=== PATIENT | female | born 1965 | race Caucasian/White ===

== ENCOUNTER 2017-01-07 14:10 | Emergency (ER) | payer BC ==
[2017-01-07 14:42] VITALS: BP 121/84
--- NOTE | 2017-01-07 16:06 | EDM.PDOC ---
ED HPI GENERAL MEDICAL PROBLEM - General Chief Complaint: Upper Extremity Injury/Pain Stated Complaint: LEFT WRIST PAIN Time Seen by Provider: 01/07/17 16:00 Source of Information: Reports: Patient History Limitations: Reports: No Limitations - History of Present Illness INITIAL COMMENTS - FREE TEXT/NARRATIVE: 51-year-old female presents for evaluation and treatment of several different complaints. What brought patient to the ER is left wrist swelling and pain. Reports that this has been going on for the last 2 days. She states that she came to [facility] late on night. She states the next day she noticed swelling and pain to the left lateral wrist. No numbness or tingling into the hand. No overlying erythema. She denies any trauma or repetitive movements. Patient is left-handed. Patient also reports that she was recently diagnosed with "a lung infection." She states this with either pneumonia or bronchitis. She has been on antibiotics and prednisone. She has completed the antibiotic but continues to be on prednisone 10 mg daily. She reports associated symptoms of coughing and fatigue. States she is coughing up a green colored sputum. She denies any earaches, fevers, nausea, vomiting or sore throat. Patient is a diabetic. She is also on multiple medications for chronic pain. Left Wrist Pain Score (Numeric/FACES): 7 - Related Data Allergies Allergy/AdvReac Type Severity Reaction Status Date / Time Cephalosporins Allergy Cannot Verified 01/07/17 14:42 Remember Home Meds: Home Meds Albuterol [Proventil Neb Soln] 1.25 mg INH DAILY 01/07/17 [History] Anastrozole [Arimidex] 1 mg PO DAILY 01/07/17 [History] Benzonatate 100 mg PO TID 01/07/17 [History] Calcium Carbonate [Tums] 500 mg PO ASDIRECTED PRN 01/07/17 [History] DULoxetine [Cymbalta] 30 mg PO DAILY 01/07/17 [History] Esomeprazole [NexIUM] 40 mg PO DAILY 01/07/17 [History] Gabapentin [Neurontin] 800 mg PO TID 01/07/17 [History] Glimepiride [Amaryl] 4 mg PO BID 01/07/17 [History] Hydrochlorothiazide 25 mg PO DAILY 01/07/17 [History] Insulin Glarg,Human.Rec.Analog [Lantus] 40 - 80 units INJECT DAILY 01/07/17 [ History] Insulin Lispro [Humalog Kwikpen U-100] 4 - 10 units INJECT ASDIRECTED 01/07/17 [ History] Ipratropium-Albuteral 01/07/17 [History] Levothyroxine Sodium [Synthroid] 137 mcg PO DAILY 01/07/17 [History] Mometasone/Formoterol [Dulera 200-5 MCG] 2 puff INH BID 01/07/17 [History] Montelukast [Singulair] 10 mg PO DAILY 01/07/17 [History] Morphine [MS Contin] 20 mg PO BID 01/07/17 [History] Potassium Chloride 20 meq PO DAILY 01/07/17 [History] Prednisone [IMW: predniSONE] 20 mg PO ASDIRECTED 01/07/17 [History] Tiotropium [place] [Spiriva Respimat] 0.5 - 2.5 mg NEB TID PRN 01/07/17 [History ] Topiramate 50 mg PO DAILY 01/07/17 [History] Zolpidem Tartrate [Ambien] 5 mg PO BEDTIME 01/07/17 [History] atorvaSTATin [Lipitor] 20 mg PO BEDTIME 01/07/17 [History] oxyCODONE 10 mg PO Q6H PRN 01/07/17 [History] tiZANidine [Zanaflex] 2 mg PO 1200 01/07/17 [History] tiZANidine [Zanaflex] 4 mg PO BEDTIME 01/07/17 [History] Past Medical History HEENT History: Reports: Impaired Vision Respiratory History: Reports: Asthma, Bronchitis, Recurrent, Pneumonia, Recurrent, Sleep Apnea Other Genitourinary History: "cannot take NSAIDS, not sure what it's called" Musculoskeletal History: Reports: Back Pain, Chronic Endocrine/Metabolic History: Reports: Diabetes, Type II, Hypothyroidism Oncologic (Cancer) History: Reports: Breast Social & Family History - Family History Family Medical History: Noncontributory - Tobacco Use Smoking Status *Q: Never Smoker Second Hand Smoke Exposure: No - Recreational Drug Use Recreational Drug Use: No Review of Systems - Review of Systems Review Of Systems: See Below Constitutional: Reports: Other (reports malaise; reports fatigue). Denies: Fever Ears: Denies: Pain Mouth/Throat: Denies: Pain Respiratory: Reports: Cough, Sputum (reports green sputum). Denies: Shortness of Breath Cardiovascular: Denies: Chest Pain GI/Abdominal: Denies: Nausea, Vomiting Musculoskeletal: Reports: Joint Pain (left wrist), Joint Swelling (left wrist) Skin: Denies: Erythema Neurological: Denies: Numbness, Tingling ED EXAM, GENERAL - Physical Exam Exam: See Below Exam Limited By: No Limitations General Appearance: Alert, WD/WN, No Apparent Distress Eye Exam: Bilateral Eye: Normal Inspection Ears: Normal External Exam, Normal Canal, Hearing Grossly Normal, Normal TMs Ear Exam: Bilateral Ear: TM normal Nose: Normal Inspection Throat/Mouth: Normal Inspection, Normal Lips, Normal Voice, No Airway Compromise Neck: Normal Inspection Respiratory/Chest: No Respiratory Distress, Lungs Clear, Normal Breath Sounds Cardiovascular: Normal Peripheral Pulses, Regular Rate, Rhythm, No Murmur Peripheral Pulses: 2+: Radial (L), Radial (R) Extremities: Normal Capillary Refill, Other (heavy shellac to the fingernails) Neurological: Alert, Oriented, Normal Cognition Psychiatric: Normal Affect, Normal Mood Skin Exam: Warm, Dry Course - Vital Signs Last Recorded V/S: Last Vital Signs Temp 37.4 C 01/07/17 14:35 Pulse 115 H 01/07/17 14:35 Resp 22 H 01/07/17 14:35 BP 121/84 01/07/17 14:35 Pulse Ox 90 L 01/07/17 14:35 - Orders/Labs/Meds Labs: Laboratory Tests 01/07/17 01/07/17 Range/Units 15:50 15:50 WBC 27.47 H (3.98-10.04) K/mm3 RBC 4.44 (3.98-5.22) M/mm3 Hgb 13.0 (11.2-15.7) gm/L Hct 40.7 (34.1-44.9) % MCV 91.7 (79.4-94.8) fl MCH 29.3 (25.6-32.2) pg MCHC 31.9 L (32.2-35.5) g/dl RDW Std Deviation 49.4 H (36.4-46.3) fL Plt Count 312 (182-369) K/mm3 MPV 8.9 L (9.4-12.3) fl Neutrophils % (Manual) 82 H (40-60) % Band Neutrophils % 10 (0-10) % Lymphocytes % (Manual) 6 L (20-40) % Atypical Lymphs % 0 % Monocytes % (Manual) 2 (2-10) % Eosinophils % (Manual) 0 L (0.7-5.8) % Basophils % (Manual) 0 L (0.1-1.2) Toxic Granulation Few Platelet Estimate Adequate Plt Morphology Comment Normal RBC Morph Comment Normal Sodium 139 (136-145) mEq/L Potassium 3.4 L (3.5-5.1) mEq/L Chloride 100 (98-107) mEq/L Carbon Dioxide 29 (21-32) mEq/L Anion Gap 13.4 (5-15) BUN 20 H (7-18) mg/dL Creatinine 1.2 H (0.55-1.02) mg/dL Est Cr Clr Drug Dosing 52.72 mL/min Estimated GFR (MDRD) 47 (>60) mL/min BUN/Creatinine Ratio 16.7 (14-18) Glucose 89 (74-106) mg/dL Calcium 9.8 (8.5-10.1) mg/dL Total Bilirubin 1.0 (0.2-1.0) mg/dL AST 17 (15-37) U/L ALT 33 (14-59) U/L Alkaline Phosphatase 108 (46-116) U/L C-Reactive Protein 7.0 H* (<1.0) mg/dL Total Protein 8.1 (6.4-8.2) g/dl Albumin 3.7 (3.4-5.0) g/dl Globulin 4.4 gm/dL Albumin/Globulin Ratio 0.8 L (1-2) - Radiology Interpretation Free Text/Narrative:: chest xray shows no acute intrathoracic process. left wrist xray shows no acute fractures or dislocations. - Re-Assessments/Exams Free Text/Narrative Re-Assessment/Exam: 01/07/17 17:21 I reviewed the labs and imaging the patient. I feel her elevated white blood cell count is likely due to her prolonged prednisone usage. 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 Her pulse oxy in the upper 80s to low 90s is likely no accurate given her heavy shellaced nails. The plan is to be in [place] for the next month. I'll provide her with the names of some providers to follow-up with if her symptoms do not improve. Discharge instructions as documented. Departure - Departure Time of Disposition: 17:21 Disposition: Home, Self-Care 01 Condition: Fair Clinical Impression: Wrist pain, left - Discharge Information Instructions: Wrist Pain Referrals: PCP,Not In Area [Primary Care Provider] - Nati Springer PA-C [Physician Air Traffic Coordinator] - Forms: ED Department Discharge Additional Instructions: Recommend using the wrist splint and icing the wrist for 5 times a day for 10- 15 minutes. May use [id number] Tylenol as needed. Follow-up with family medicine in 1-2 weeks if year symptoms do not improve. Recommend Nati Springer or Analilia Skelton. Call [phone] to schedule with on of them. Please return to the ER if her symptoms change or worsen.
--- NOTE | 2017-01-12 10:47 | CR ---
Chest: Two views of the chest were obtained. Comparison: No previous study. Heart size and mediastinum are within normal limits. Right sided infusion catheter is seen. Electrostimulating device is seen within the thoracic spine. Lungs are clear with no acute infiltrates. Minimal scoliosis is noted within the spine with mild degenerative change. Impression: 1. Incidental findings. Nothing acute is appreciated on two-view chest x-ray. Diagnostic code #2
--- NOTE | 2017-01-12 10:47 | CR ---
Left wrist: Four views of the left wrist were obtained. Comparison: No previous study. Joint spaces are maintained. No acute fracture, dislocation or other bony abnormality is seen. Impression: 1. No abnormality is identified on left wrist study. Diagnostic code #1
== END 2017-01-07 17:44 | disposition home or self-care (01) ==
LOC: JD.ED 14:10
DX: M25.532 Pain in left wrist (principal); J45.909 Unspecified asthma, uncomplicated; E11.9 Type 2 diabetes mellitus without complications; E03.9 Hypothyroidism, unspecified; Z88.8 Allergy status to other drugs, medicaments and biological substances; Z79.4 Long term (current) use of insulin; Z79.899 Other long term (current) drug therapy; Z87.01 Personal history of pneumonia (recurrent); G47.30 Sleep apnea, unspecified; Z85.3 Personal history of malignant neoplasm of breast; Z88.1 Allergy status to other antibiotic agents
CPT/HCPCS: 36415; 71020; 71020-26; 73110-26-LT; 73110-LT; 80053; 85025; 86140; 99283; 99284

== ENCOUNTER 2019-05-18 14:07 | Emergency (ER) | payer BC ==
[2019-05-18] MEDS ORDERED: HYDROmorphone 0.5 MG/0.5 ML Syringe IVPUSH ONE ×2 (14:22→15:23)
[2019-05-18] MEDS ORDERED: Sodium Chloride 0.9% 10 ML Syringe FLUSH PRN (14:22)
--- NOTE | 2019-05-18 14:27 | EDM.PDOC ---
ED HPI GENERAL MEDICAL PROBLEM - General Chief Complaint: Upper Extremity Injury/Pain Stated Complaint: [facility] Time Seen by Provider: 05/18/19 14:13 Source of Information: Reports: Patient, EMS, RN Notes Reviewed - History of Present Illness INITIAL COMMENTS - FREE TEXT/NARRATIVE: 54-year-old lady was stepping over some type of a stair gait, lost her balance, came down hard on her left shoulder. She has severe left shoulder pain. EMS was called due to severity of the pain. She denies head neck or upper back injury. She denies chest pain or difficulty breathing. She has severe pain moving the left arm at the shoulder joint and also has moderate discomfort at the left elbow joint. She is diabetic, on insulin and multiple meds for that and also on multiple pain medications. Left Shoulder Pain Score (Numeric/FACES): 10 - Related Data Allergies Allergy/AdvReac Type Severity Reaction Status Date / Time Cephalosporins Allergy Cannot Verified 01/07/17 14:42 Remember NSAIDS (Non-Steroidal Allergy Cannot Verified 05/18/19 14:14 Anti-Inflamma Remember shellfish derived Allergy Cannot Verified 05/18/19 14:14 Remember Home Meds: Home Meds Albuterol [Proventil Neb Soln] 1.25 mg INH DAILY 01/07/17 [History] Anastrozole [Arimidex] 1 mg PO DAILY 01/07/17 [History] Benzonatate 100 mg PO TID 01/07/17 [History] Calcium Carbonate [Tums] 500 mg PO ASDIRECTED PRN 01/07/17 [History] DULoxetine [Cymbalta] 30 mg PO DAILY 01/07/17 [History] Esomeprazole [NexIUM] 40 mg PO DAILY 01/07/17 [History] Gabapentin [Neurontin] 800 mg PO TID 01/07/17 [History] Glimepiride [Amaryl] 4 mg PO BID 01/07/17 [History] Hydrochlorothiazide 25 mg PO DAILY 01/07/17 [History] Insulin Glarg,Human.Rec.Analog [Lantus] 40 - 80 units INJECT DAILY 01/07/17 [ History] Insulin Lispro [Humalog Kwikpen U-100] 4 - 10 units INJECT ASDIRECTED 01/07/17 [ History] Ipratropium-Albuteral 01/07/17 [History] Levothyroxine Sodium [Synthroid] 137 mcg PO DAILY 01/07/17 [History] Mometasone/Formoterol [Dulera 200-5 MCG] 2 puff INH BID 01/07/17 [History] Montelukast [Singulair] 10 mg PO DAILY 01/07/17 [History] Morphine [MS Contin] 20 mg PO BID 01/07/17 [History] Potassium Chloride 20 meq PO DAILY 01/07/17 [History] Prednisone [IMW: predniSONE] 20 mg PO ASDIRECTED 01/07/17 [History] Tiotropium [place] [Spiriva Respimat] 0.5 - 2.5 mg NEB TID PRN 01/07/17 [History ] Topiramate 50 mg PO DAILY 01/07/17 [History] Zolpidem Tartrate [Ambien] 5 mg PO BEDTIME 01/07/17 [History] atorvaSTATin [Lipitor] 20 mg PO BEDTIME 01/07/17 [History] oxyCODONE 10 mg PO Q6H PRN 01/07/17 [History] tiZANidine [Zanaflex] 2 mg PO 1200 01/07/17 [History] tiZANidine [Zanaflex] 4 mg PO BEDTIME 01/07/17 [History] Hydrocodone/Acetaminophen [[place] 5-325 Tablet] 1 each PO Q4HR PRN #30 tablet [Rx] Past Medical History HEENT History: Reports: Impaired Vision Respiratory History: Reports: Asthma, Bronchitis, Recurrent, Pneumonia, Recurrent, Sleep Apnea Other Genitourinary History: "cannot take NSAIDS, not sure what it's called" Musculoskeletal History: Reports: Back Pain, Chronic Endocrine/Metabolic History: Reports: Diabetes, Type II, Hypothyroidism Oncologic (Cancer) History: Reports: Breast Social & Family History - Family History Family Medical History: Noncontributory Review of Systems - Review of Systems Review Of Systems: See Below Constitutional: Reports: No Symptoms Eyes: Reports: No Symptoms Ears: Reports: No Symptoms Nose: Reports: No Symptoms Mouth/Throat: Reports: No Symptoms Respiratory: Denies: Shortness of Breath Cardiovascular: Denies: Chest Pain GI/Abdominal: Denies: Abdominal Pain, Vomiting Musculoskeletal: Reports: Shoulder Pain, Arm Pain. Denies: Back Pain, Leg Pain Skin: Reports: No Symptoms Neurological: Denies: Numbness, Tingling ED EXAM, GENERAL - Physical Exam Exam: See Below General Appearance: Alert, Mild Distress Eye Exam: Bilateral Eye: PERRL Throat/Mouth: Normal Inspection Head: Atraumatic Neck: Supple, Non-Tender Respiratory/Chest: No Respiratory Distress, Lungs Clear, Normal Breath Sounds Cardiovascular: Regular Rate, Rhythm Back Exam: Normal Inspection Extremities: Other (There is moderate diffuse tenderness of the left shoulder, no visible deformity, severe pain with any motion at the shoulder joint, left elbow also tender posteriorly and laterally and also has pain with motion of the left elbow. Once again no visible swelling or deformity.) Neurological: Alert, Oriented, No Motor/Sensory Deficits Skin Exam: Warm, Dry, Normal Color ED TRAUMA EXTREMITY PROCEDURES - Splinting Upper Extremity Splint Site: Upper arm and forearm Pre-Procedure NV Status: Normal Post-Procedure NV Status: Normal Splint Material: Fiberglass Splint Design: Posterior Applied & Form Fitted By: Provider Provider Post-Splint Application NV Check: NV Status Normal Course - Vital Signs Last Recorded V/S: Last Vital Signs Temp 97.5 F 05/18/19 14:11 Pulse 97 05/18/19 14:11 Resp 16 05/18/19 14:11 BP 116/66 05/18/19 14:11 Pulse Ox 94 L 05/18/19 14:11 - Orders/Labs/Meds Orders: Active Orders 24 hr Category Date Time Status Peripheral IV Care [RC] . DIRECTED Care 05/18/19 14:22 Active Elbow 2V Lt [CR] Stat Exams 05/18/19 14:33 Taken Shoulder Comp Lt [CR] Stat Exams 05/18/19 14:33 Taken Sodium Chloride 0.9% [Saline Flush] Med 05/18/19 14:22 Active 10 ml FLUSH ASDIRECTED PRN Peripheral IV Insertion Adult [OM.PC] Stat Oth 05/18/19 14:20 Ordered Medication Orders Sodium Chloride (Saline Flush) 10 ml FLUSH ASDIRECTED PRN PRN Reason: Keep Vein Open Last Admin: 05/18/19 14:25 Dose: 10 ml Meds: Medications Generic Name Dose Route Start Last Admin Trade Name Freq PRN Reason Stop Dose Admin Sodium Chloride 10 ml 05/18/19 14:22 05/18/19 14:25 Saline Flush FLUSH 10 ml ASDIRECTED PRN Administration Keep Vein Open Discontinued Medications Generic Name Dose Route Start Last Admin Trade Name Jarrod PRN Reason Stop Dose Admin Hydromorphone HCl 0.5 mg 05/18/19 14:22 05/18/19 14:32 Dilaudid IVPUSH 05/18/19 14:23 0.5 mg ONETIME ONE Administration Hydromorphone HCl 0.5 mg 05/18/19 15:23 05/18/19 15:28 Dilaudid IVPUSH 05/18/19 15:24 0.5 mg ONETIME ONE Administration - Re-Assessments/Exams Free Text/Narrative Re-Assessment/Exam: 05/18/19 16:12 X-ray of left shoulder does show fracture of the surgical neck of the humerus. Minimal displacement. Trace of the elbow are negative for fracture. Posterior splint has been applied. Sling-and swath ordered. Discharge instructions as documented Departure - Departure Time of Disposition: 16:13 Disposition: Home, Self-Care 01 Condition: Fair Clinical Impression: Fracture of humerus Qualifiers: Encounter type: initial encounter Humerus Location: surgical neck Fracture type : closed Fracture morphology: 2-part Laterality: left - Discharge Information Prescriptions: Hydrocodone/Acetaminophen [[place] 5-325 Tablet] 1 each PO Q4HR PRN #30 tablet PRN Reason: Pain Forms: ED Department Discharge Additional Instructions: Fiberglass splint left arm, sling and swathe for immobilization L arm. Intermittent ice packs to left shoulder this evening and tomorrow when it works to do that. Hydrocodone 1 tab every 4-6 hours as needed for severe pain. Prescription has been sent electronic to [facility] the [employer] [facility] [facility]. See Orthopedist in about 5-7 days, call next Monday for appointment. Have your regular local medical provider help with that referral if needed. Bring disc with copy of x-rays obtained today with you for that appointment. Sepsis Event Note - Evaluation Sepsis Screening Result: No Definite Risk - Focused Exam Vital Signs: Vital Signs Temp Pulse Resp BP Pulse Ox 05/18/19 14:11 97.5 F 97 16 116/66 94 L Date Exam was Performed: 05/18/19 Time Exam was Performed: 16:12 - My Orders Last 24 Hours: My Active Orders 05/18/19 14:20 Peripheral IV Insertion Adult [OM.PC] Stat 05/18/19 14:22 Peripheral IV Care [RC] . DIRECTED Sodium Chloride 0.9% [Saline Flush] 10 ml FLUSH ASDIRECTED PRN 05/18/19 14:33 Elbow 2V Lt [CR] Stat Shoulder Comp Lt [CR] Stat - Assessment/Plan Last 24 Hours: My Active Orders 05/18/19 14:20 Peripheral IV Insertion Adult [OM.PC] Stat 05/18/19 14:22 Peripheral IV Care [RC] . DIRECTED Sodium Chloride 0.9% [Saline Flush] 10 ml FLUSH ASDIRECTED PRN 05/18/19 14:33 Elbow 2V Lt [CR] Stat Shoulder Comp Lt [CR] Stat
[2019-05-18 16:51] VITALS: BP 110/66; PULSE 100
--- NOTE | 2019-05-20 07:12 | CR ---
Left elbow: Two views of the left elbow were obtained. Study is suboptimal in positioning. No gross fracture or other abnormality is appreciated. Impression: 1. Limited study due to positioning. 2. Within above limitation, no gross abnormality is appreciated. Diagnostic code #2 This report was dictated in [place] Standard Time
--- NOTE | 2019-05-20 07:12 | CR ---
Left shoulder: Three views of the left shoulder were obtained. Comparison: No previous shoulder study. Surgical neck fracture is identified. Alignment remains close to anatomic. No additional fracture or other bony abnormality is seen. Electrostimulating device seen within the thoracic spine. Impression: 1. Acute surgical neck fracture within the proximal left humerus. Diagnostic code #3 This report was dictated in [place] Standard Time I agree with preliminary report issued by [facility] ([facility] report finalized on 05/18/19, 4:17 PM Central Time)
== END 2019-05-18 16:45 | disposition home or self-care (01) ==
LOC: JD.ED 14:07
DX: S42.222A 2-part displaced fracture of surgical neck of left humerus, initial encounter for closed fracture (principal); J45.909 Unspecified asthma, uncomplicated; E11.9 Type 2 diabetes mellitus without complications; E03.9 Hypothyroidism, unspecified; Z79.4 Long term (current) use of insulin; Z79.899 Other long term (current) drug therapy; Z88.1 Allergy status to other antibiotic agents; Z91.013 Allergy to seafood; Z88.8 Allergy status to other drugs, medicaments and biological substances; W10.9XXA Fall (on) (from) unspecified stairs and steps, initial encounter
CPT/HCPCS: 29105; 73030; 73070; 96374; 96376; 99284; J1170; 29125; 99283